=== PATIENT | female | born 1965 | race African-American/Black ===

== ENCOUNTER 2020-10-18 10:00 | Emergency (ER) | payer OTHER ==
[~2020-10-18] VITALS: Ht 163.8 cm; Wt 71.8 kg
[~2020-10-18 10:00] MED LIST: NOCURR
[2020-10-18] MEDS ORDERED: LOSA50TA37 PO (10:04)
[2020-10-18] MEDS ORDERED: AMLO10TA55 PO (10:05)
[2020-10-18 12:38] VITALS: BP 146/82
== END 2020-10-18 12:52 | disposition home or self-care (01) ==
LOC: EMS 10:06
DX: R60.0 Localized edema (principal); I10 Essential (primary) hypertension
CPT/HCPCS: 93971; 99284; Z7502

== ENCOUNTER 2022-09-13 17:20 | Emergency (ER) | payer OTHER ==
[~2022-09-13] VITALS: Ht 162.6 cm; Wt 77.3 kg
[~2022-09-13 17:20] MED LIST changes: +AMLO10TA55 PO; +LOSA-382 PO
[2022-09-13] MEDS ORDERED: CHL25 PO (17:34)
[2022-09-13 21:45] VITALS: BP 132/71
== END 2022-09-13 21:05 | disposition home or self-care (01) ==
LOC: EMS 17:22
DX: R60.0 Localized edema (principal); M66.0 Rupture of popliteal cyst; I10 Essential (primary) hypertension; Z90.710 Acquired absence of both cervix and uterus
CPT/HCPCS: 29540; 93971; 99284; Z7502

== ENCOUNTER 2023-02-15 16:05 | Emergency (ER) | payer OTHER ==
[~2023-02-15] VITALS: Ht 165.1 cm; Wt 70.5 kg
[~2023-02-15 16:05] MED LIST changes: +CHL25 PO; -NOCURR
[2023-02-15 16:11] VITALS: TEMP 97.8
[2023-02-15 18:00] VITALS: BP 124/71; PULSE 71; RESP 18
== END 2023-02-15 19:49 | disposition home or self-care (01) ==
LOC: EMS 16:06
DX: S80.12XA Contusion of left lower leg, initial encounter (principal); M79.662 Pain in left lower leg; I10 Essential (primary) hypertension; Z90.710 Acquired absence of both cervix and uterus; W31.89XA Contact with other specified machinery, initial encounter; Y93.89 Activity, other specified; Y92.89 Other specified places as the place of occurrence of the external cause; Y99.8 Other external cause status
CPT/HCPCS: 93971; 99284; 73590-TC; Z7502